=== PATIENT | female | born 1965 | race Hispanic/Latino ===

== ENCOUNTER → 2019-06-09 | Day surgery (SDC) | payer OTHER ==
[~2019-06-09] MED LIST: FENTANYL CITRATE/PF 100MCG/2 ML INJ ONE; HYOSCYAMINE 0.125 MG TAB ONE; LISINOPRIL10 MG PO; METFORMIN HCL500 MG PO; MIDAZOLAM HCL 2 MG/2 ML VIAL ONE; OMEPRAZOLE40 MG PO; PRAVASTATIN SOD40 MG PO; PROPOFOL IV EMULSION 10 MG/ML 50 ML VIAL ONE
--- OUTSIDE RECORDS SUMMARY | 2019-06-09 11:17 | XMS REPORT ---
[facility] [place] Address Unknown Phone Unavailable Care Team Providers Care Adoption Services Manager Name Role Phone Unavailable Unavailable Problems This patient has no known problems. Allergies, Adverse Reactions, Alerts This patient has no known allergies or adverse reactions. Medications This patient has no known medications. Encounters Start Date/Time End Date/Time Encounter Type Admission Type Attending Clinicians Care Facility Care Department Encounter ID 2018-12-22 10:47:00 2018-12-22 10:47:00 Outpatient [facility] [id number] Results Test Description Test Time Test Comments Text Results Atomic Results Result Comments BREAST ULTRASOUND BILATERAL 2018-06-16 11:17:52 - BREAST ULTRASOUND BILATERALULTRASOUND OF BOTH BREASTS: 06/16/2018CLINICAL: Followup to previous exam. Comparison is made to exams dated 10/07/2017 ultrasound, 10/07/2017 mammogram, and 2010 mammogram - [facility]-. Color flow and real-time ultrasound of both breasts were performed. Romero scale images of the real-time examination were reviewed. The breast tissue has heterogenous background echotexture. Targeted left breast ultrasound demonstrates a solid oval mass at 10 o'clock, 2 cm from the nipple, unchanged in size since comparison ultrasound measuring 12 x 11 x 10 mm. The rest of the bilateral survey ultrasound demonstrates scattered simple cyst but no suspicious sonographic abnormality. No axillary lymphadenopathy was seen.IMPRESSION: PROBABLY BENIGN - FOLLOW-UP ALEKSANDRA MMENDEDStable solid oval mass in the left breast at 10 o'clock. Multiple bilateral simple cysts. A follow-up ultrasound in 6 months is recommended to demonstrate stability of the left breast mass at the time of patient's screening mammogram which is due in October 2018. William Perez M.D. ss/:06/16/2018 11:17:52 Entry: - 06/20/2018 15:47:05copy to: Pam FIELDS, ph: [phone], fax: [phone] Technologist: Lily BARCLAY, [facility] sent: Short Term Follow Up Ultrasound BI-RADS: 3 Probably benign BREAST ULTRASOUND BILATERAL 2018-06-16 11:17:52 - BREAST ULTRASOUND BILATERALULTRASOUND OF BOTH BREASTS: 06/16/2018CLINICAL: Followup to previous exam. Comparison is made to exams dated 10/07/2017 ultrasound, 10/07/2017 mammogram, and 2010 mammogram - [facility]. Color flow and real-time ultrasound of both breasts were performed. Romero scale images of the real-time examination were reviewed. The breast tissue has heterogenous background echotexture. Targeted left breast ultrasound demonstrates a solid oval mass at 10 o'clock, 2 cm from the nipple, unchanged in size since comparison ultrasound measuring 12 x 11 x 10 mm. The rest of the bilateral survey ultrasound demonstrates scattered simple cyst but no suspicious sonographic abnormality. No axillary lymphadenopathy was seen.IMPRESSION: PROBABLY BENIGN - FOLLOW-UP ALEKSANDRA MMENDEDStable solid oval mass in the left breast at 10 o'clock. Multiple bilateral simple cysts. A follow-up ultrasound in 6 months is recommended to demonstrate stability of the left breast mass at the time of patient's screening mammogram which is due in 2019. William Perez M.D. ss/:06/16/2018 11:17:52 Entry: - 06/20/2018 15:47:05copy to: Pam FIELDS, ph: [phone], fax: [phone] Technologist: Lily BARCLAY, [facility] Short Term Follow Up Ultrasound BI-RADS: 3 Probably benign
[2019-06-09 13:25] VITALS: BP 109/59
--- NOTE | 2019-06-09 16:40 | Operative Report ---
DATE OF PROCEDURE: 06/09/2019 SURGEON: Bud Crespo MD PROCEDURE: Colonoscopy with polypectomy. INDICATIONS FOR COLONOSCOPY: Colorectal cancer screening. MEDICATIONS: The patient was done under MAC, please see anesthesiologist's note. PROCEDURE IN DETAIL: With the patient in lateral decubitus position, a flexible fiberoptic Olympus colonoscope was inserted into the rectum with ease and advanced all the way to the cecum. It was then withdrawn slowly. Mucosa overlying the cecum appeared to be within normal limits. Some diverticulosis was noted in the proximal ascending colon. The rest of the ascending colon grossly appeared to be within normal limits. One polyp was hot biopsied from the transverse colon. The descending appeared to be within normal limits. There was some minimal diverticulosis noted. One polyp was hot biopsied from the sigmoid colon. One polyp was hot biopsied from the rectum. The scope was then retroflexed into the distal rectum and small internal hemorrhoids were noted, none of which was actively bleeding. The scope was then straightened out, it was subsequently withdrawn patient tolerated procedure well. IMPRESSION: 1. Transverse colon polyp, hot biopsied. 2. Sigmoid colon polyp, hot biopsied. 3. Diverticulosis. 4. Rectal polyp, hot biopsied. 5. Internal hemorrhoids, none actively bleeding. PLAN: Follow up histology. Initiate high-fiber, low-fat diet. Initiate high-fiber supplement. The patient might benefit from a followup colonoscopy in 3 to 5 years. Bud Crespo MD [facility] [place] /[id number] cc: Antonio Means MD
== END | disposition home or self-care (01) ==
LOC: OR 10:20
PROVIDERS: ATTEND Internal Medicine Gastroenterology
DX: Z12.11 Encounter for screening for malignant neoplasm of colon (principal); E11.9 Type 2 diabetes mellitus without complications; I10 Essential (primary) hypertension; K63.5 Polyp of colon; K57.30 Diverticulosis of large intestine without perforation or abscess without bleeding; K64.8 Other hemorrhoids; Z79.84 Long term (current) use of oral hypoglycemic drugs; R14.0 Abdominal distension (gaseous); K52.1 Toxic gastroenteritis and colitis; D12.5 Benign neoplasm of sigmoid colon; Z01.810 Encounter for preprocedural cardiovascular examination
CPT/HCPCS: 36415; 45378; 45384; 81025; 82948; 93005; J2250; J3010